=== PATIENT | female | born 1940 ===

== ENCOUNTER → 2022-01-21 | Outpatient (CLI) | payer OTHER ==
[~2022-01-21] MED LIST: FAMO20 PO; HYDACE5 PO; ONDA8ODT MM; SULTRISS PO; VALA500 PO
== END | disposition home or self-care (01) ==
LOC: LAB SHORT 10:45 → LAB 10:45
DX: T14.8XXA Other injury of unspecified body region, initial encounter (principal); S00.81XA Abrasion of other part of head, initial encounter; L08.9 Local infection of the skin and subcutaneous tissue, unspecified
CPT/HCPCS: 87070; 87077; 87147; 87186; 87205

== ENCOUNTER → 2024-03-01 | Outpatient (CLI) | payer OTHER | END | disposition home or self-care (01) | LOC: LAB 14:37 → LAB SHORT 14:37 | DX: C44.319 Basal cell carcinoma of skin of other parts of face (principal) ==